=== PATIENT | male | born 1945 | race Caucasian/White ===

== ENCOUNTER 2018-06-27 09:06 | Emergency (ER) | payer MEDICARE ==
--- NOTE | 2018-06-27 09:19 | UC ---
Bite Injury/Animal HPI - HPI Summary HPI Summary: 72 yo male presents with dog bite to right hand. He tells me that this morning he was drying off his son's dog and the dog turned around and bit pt's right hand. He believes the dog is UTD on all vaccinations. Pt reports that last tetanus shot was within the last year. He bandaged the area and came to . - History of Current Complaint Stated Complaint: DOG BITE Time Seen by Provider: 06/27/18 09:19 Hx Obtained From: Patient Severity Currently: Moderate Severity Initially: Moderate Pain Intensity: 5 Pain Scale Used: 0-10 Numeric Onset/Duration: Sudden Onset Type of Bite: Animal Has Animal Been Immunized?: Yes - Allergies/Home Medications Home Medications: Home Medications Fluticasone NASAL SPRAY 50MCG* [Flonase NASAL SPRAY 50MCG*] 1 spray DAILY [History Confirmed 06/27/18] Loratadine [Allergy Childrens] 10 mg PO DAILY 06/27/18 [History Confirmed ] PMH/Surg Hx/FS Hx/Imm Hx - Additional Past Medical History Additional PMH: Seasonal allergies - Family History Known Family History: Positive: None - Social History Occupation: Retired Lives: With Family Alcohol Use: Occasionally Substance Use Type: None Smoking Status (MU): Never Smoked Tobacco Review of Systems All Other Systems Reviewed And Are Negative: Yes Constitutional: Positive: Negative Skin: Positive: Other - Dog bite right hand Respiratory: Positive: Negative Cardiovascular: Positive: Negative Gastrointestinal: Positive: Negative Neurovascular: Positive: Negative Musculoskeletal: Positive: Negative Neurological: Positive: Negative Psychological: Positive: Negative Physical Exam - Summary Physical Exam Summary: GENERAL: NAD. WDWN. No pain distress. SKIN: RIGHT HAND: 1.0cm superficial skin tear to dorsal aspect overlying 4th MCP. Puncture wound to web space of 3rd and 4th digit. Puncture wound dorsal aspect of proximal hand distal to the wrist. CHEST: No accessory muscle use. Breathing comfortably and in no distress. CV: Pulses intact. Cap refill <2seconds MSK: FROM right hand and all fingers. NEURO: Alert. PSYCH: Age appropriate behavior. Triage Information Reviewed: Yes Vital Signs: Vital Signs: Temp Pulse Resp BP Pulse Ox 97.6 F 66 16 146/89 100 06/27/18 09:20 06/27/18 09:20 06/27/18 09:20 06/27/18 09:20 06/27/18 09:20 Vital Signs Reviewed: Yes Bite Injury Course/Dx - Course Course Of Treatment: Dog bite to right hand. Wounds were irrigated with 1L NS. Steri stripes applied to skin tear and hand was bandaged with telfa. Will place him on augmentin for prophylactic infection due to dog bite. - Differential Dx/Diagnosis Provider Diagnoses: Dog bite right hand Discharge - Sign-Out/Discharge Documenting (check all that apply): Patient Departure All imaging exams completed and their final reports reviewed: No Studies - Discharge Plan Condition: Stable Disposition: HOME Prescriptions: Amoxicillin/Clavulanate SUSP* [Augmentin SUSP*] 11 ml PO BID #110 ml Patient Education Materials: Animal Bite (ED) Referrals: No Primary Care Phys,NOPCP [Primary Care Provider] - Additional Instructions: If you develop a fever, shortness of breath, chest pain, new or worsening symptoms - please call your PCP or go to the ED. Your blood pressure was high at todays visit. Please see your primary provider within 4 weeks for recheck and re-evaluation. 1) Keep the wound covered and steri-stripes applied for the next 3 days. May change the dressing daily. 2) Keep covered until well healed. - Billing Disposition and Condition Condition: STABLE Disposition: Home
== END 2018-06-27 10:05 | disposition home or self-care (01) ==
LOC: UCEAST 09:06
DX: S61.451A Open bite of right hand, initial encounter (principal); W54.0XXA Bitten by dog, initial encounter; Y93.89 Activity, other specified; Y92.009 Unspecified place in unspecified non-institutional (private) residence as the place of occurrence of the external cause
CPT/HCPCS: 99202; G0463